=== PATIENT | female | born 1985 | race Caucasian/White ===

== ENCOUNTER 2016-10-25 06:42 | Day surgery (SDC) | payer BC ==
[~2016-10-25] VITALS: Ht 160 cm; Wt 51.8 kg
[~2016-10-25 06:42] MED LIST: ADVIL,NUPRIN,M200 MG PO; B COMPLETE1 EACH PO; ERGOCALCIF50000 UNIT PO; ESSENTIAL WOMA1 EAC1 PO; ULTRAM50 MG PO
[2016-10-25 07:57] VITALS: BP 111/67
[2016-10-25] MEDS ORDERED: TRAMADOL HCL50 MG PO (10:47)
[2016-10-25] MEDS ORDERED: COLACE100 MG PO (10:47)
[2016-10-25 11:41] VITALS: BP 137/90
[2016-10-25 12:45] VITALS: BP 102/68
[2016-10-25 14:15] VITALS: BP 102/59
== END 2016-10-25 14:37 | disposition home or self-care (01) ==
LOC: SDC 06:42
PROC: 0FT44ZZ Resection of Gallbladder, Percutaneous Endoscopic Approach (ICD-10-PCS; principal; 2016-10-25)
DX: K80.10 Calculus of gallbladder with chronic cholecystitis without obstruction (principal)
CPT/HCPCS: 88304; C1769; J0330; J1100; J1885; J2250; J2405; J2710; J2765; J3010